=== PATIENT | female | born 1940 | race Caucasian/White ===

== ENCOUNTER → 2016-03-05 | Outpatient (CLI) | payer MEDICARE ==
[~2016-03-05] MED LIST: ASPIRIN81 M2 PO; BUMETANIDE2 MG PO; CEFDINIR300 MG PO; CELEXA20 MG PO; CHOLESTYRAMINE210 GM PO; DIOVAN HCT 11 TABLET PO; HYZAAR 100-11 TABLET PO; IBUPROFEN800 MG PO; LO-DOSE ASPIRIN81 M2 PO; LOPRESSOR100 M1 PO; LOPRESSOR50 MG PO; LORAZEPAM0.5 MG PO; NAPROXEN375 MG PO; NORCO 5/3251 TABLET PO; PRAVASTATIN SOD80 MG PO; TYLENOL EXTRA500 MG PO
== END | disposition home or self-care (01) ==
LOC: CDC 12:54
DX: R94.31 Abnormal electrocardiogram [ECG] [EKG] (principal); Q24.9 Congenital malformation of heart, unspecified; N20.0 Calculus of kidney
CPT/HCPCS: 93000

== ENCOUNTER 2016-03-12 18:22 | Inpatient (IN) | payer OTHER, MEDICARE ==
[~2016-03-12] VITALS: Ht 152.4 cm; Wt 89.9 kg
[~2016-03-12 18:22] MED LIST changes: -CEFDINIR300 MG PO; -HYZAAR 100-11 TABLET PO; -IBUPROFEN800 MG PO; -LO-DOSE ASPIRIN81 M2 PO; -LOPRESSOR50 MG PO; -PRAVASTATIN SOD80 MG PO; -TYLENOL EXTRA500 MG PO
[2016-03-12 19:24] LABS: HEMATOCRIT 29.8 % (36.0-46.0); MCH 28.8 PG (29.0-34.0); MCHC 34.6 G/DL (30.0-36.0); MCV 83.2 FL (83-99); MEAN PLAT.VOLUME 11.8 uM^3 (9.5-12.4); PLATELET COUNT 79 K/uL (156-360); RBC DIS.WIDTH-CV 15.2 % (11.8-14.6); RBC DIS.WIDTH-SD 45.1 % (39-53); RED BLOOD COUNT 3.58 M/uL (3.80-5.20); WHITE BLOOD COUNT 9.5 K/uL (4.1-10.2)
[2016-03-12 19:33] LABS: CHLORIDE 102 mEq/L (99-109); POTASSIUM 2.6 mEq/L (3.7-5.4); SODIUM 137 mEq/L (136-147)
[2016-03-12 19:35] LABS: GLUCOSE 113 mg/dL (70-99)
[2016-03-12 19:36] LABS: ANION GAP 12 MEQ/L (2-14)
[2016-03-12 19:38] LABS: GFR ESTIMATE (CALCULATED) 39 mL/min/
[2016-03-12 19:39] LABS: UREA NITROGEN (BUN) 34 mg/dL (9-23)
[2016-03-12 19:44] LABS: TROP-I INTERPRETATION POSITIVE
[2016-03-12 19:47] LABS: TROPONIN-I 5.31 ng/mL (0.0-0.30)
[2016-03-12] MEDS ORDERED: LO-DOSE ASPIRIN81 M2 PO (20:20)
[2016-03-12] MEDS ORDERED: IBUPROFEN800 MG PO (20:21)
[2016-03-12] MEDS ORDERED: HYZAAR 100-11 TABLET PO (20:22)
[2016-03-12] MEDS ORDERED: BUMETANIDE2 MG PO (20:22)
[2016-03-12] MEDS ORDERED: TYLENOL EXTRA500 MG PO (20:22)
[2016-03-12 23:33] VITALS: BP 86/67
[2016-03-12 23:41] VITALS: BP 86/67
[2016-03-13 00:15] VITALS: BP 90/55
[2016-03-13 00:40] VITALS: BP 95/44
[2016-03-13 01:00] VITALS: BP 68/50
[2016-03-13 01:11] LABS: METH RESISTANT S AUREUS PCR NEGATIVE (NEGATIVE)
[2016-03-13 01:15] LABS: PROBE CHECK PASS; SPECIMEN PROCESSING CONTROL PASS
[2016-03-13 02:00] VITALS: BP 76/53
[2016-03-13 03:00] VITALS: BP 75/53
[2016-03-13 03:01] LABS: INTER. NORMALIZED RATIO 1.2; PROTHROMBIN TIME 12.7 (9.2-11.2); PTT 34.8 (25-32)
[2016-03-13 03:02] LABS: CHLORIDE 108 mEq/L (99-109); MAGNESIUM 1.6 mg/dL (1.3-2.7); SODIUM 139 mEq/L (136-147)
[2016-03-13 03:04] LABS: GLUCOSE 111 mg/dL (70-99)
[2016-03-13 03:05] LABS: ANION GAP 11 MEQ/L (2-14)
[2016-03-13 03:06] LABS: POTASSIUM 2.2 mEq/L (3.7-5.4); TOTAL BILIRUBIN 0.4 mg/dL (0.0-1.0)
[2016-03-13 03:08] LABS: ALKALINE PHOSPHATASE 50 IU/L (3-129); GFR ESTIMATE (CALCULATED) 57 mL/min/
[2016-03-13 03:09] LABS: UREA NITROGEN (BUN) 36 mg/dL (9-23)
[2016-03-13 03:11] LABS: TROP-I INTERPRETATION POSITIVE
[2016-03-13 03:15] LABS: TROPONIN-I 7.93 ng/mL (0.0-0.30)
[2016-03-13 03:56] LABS: LDL CHOLESTEROL 46 mg/dL (Desirable<100); NON-HDL CHOLESTEROL 90 mg/dL (Desirable<160); TOTAL CHOLESTEROL 96 mg/dL (Desirable<200); TRIGLYCERIDES 221 MG/DL (Normal: <150)
[2016-03-13 03:59] LABS: HDL CHOLESTEROL 6 MG/DL (Desirable>=50)
[2016-03-13 06:56] LABS: HEMATOCRIT 29.1 % (36.0-46.0); MCH 28.5 PG (29.0-34.0); MCHC 34.7 G/DL (30.0-36.0); MCV 82.2 FL (83-99); MEAN PLAT.VOLUME 12.9 uM^3 (9.5-12.4); PLATELET COUNT 77 K/uL (156-360); RBC DIS.WIDTH-CV 15.2 % (11.8-14.6); RBC DIS.WIDTH-SD 44.3 % (39-53); RED BLOOD COUNT 3.54 M/uL (3.80-5.20); WHITE BLOOD COUNT 8.3 K/uL (4.1-10.2)
[2016-03-13 08:00] VITALS: BP 85/52
[2016-03-13 09:30] LABS: TROP-I INTERPRETATION POSITIVE
[2016-03-13 09:43] LABS: TROPONIN-I 7.21 ng/mL (0.0-0.30)
[2016-03-13 11:14] LABS: ANION GAP 12 MEQ/L (2-14); CHLORIDE 108 MEQ/L (99-109); GFR ESTIMATE (CALCULATED) > 59 mL/min/; GLUCOSE 112 mg/dL (70-99); SAMPLE HEMOLYSIS CHECK 0; SAMPLE ICTERIC CHECK 0; SAMPLE LIPEMIA CHECK 0; SODIUM 140 MEQ/L (136-147); UREA NITROGEN (BUN) 34 mg/dL (9-23)
[2016-03-13 11:16] LABS: POTASSIUM 2.2 MEQ/L (3.7-5.4)
[2016-03-13 12:33] LABS: ADD MIUA? YES; BILIRUBIN SMALL; BLOOD LARGE; COLOR YELLOW ((YELLOW)); GLUCOSE (STRIP) NEGATIVE; KETONES TRACE; LEUKOCYTES LARGE; NITRITE NEGATIVE; PROTEIN (STRIP) 100; SPECIFIC GRAVITY 1.027 (1.000-1.030); UROBILINOGEN 0.2 MG/DL (0.2-1.0)
[2016-03-13 13:21] LABS: Estimated Average Glucose 103 mg/dL (70-123); HEMOGLOBIN A1c (GLYCOHEMOGLOB) 5.2 % HGB (Below 5.7)
[2016-03-13 13:31] LABS: BACTERIA 3+; CASTS PRESENT /LPF; CRYSTALS PRESENT; EPITHELIAL CELLS 3+; MUCUS NONE SEEN; UCUL ADDED? YES; WHITE BLOOD CELLS 30-40 /HPF (0-5)
[2016-03-13 13:32] LABS: AMORPHOUS PHOSPHATE CRYSTALS 3+; FINE GRANULAR CASTS 0-5 /LPF; HYALINE CASTS RARE /LPF
[2016-03-13 18:38] LABS: ANION GAP 14 MEQ/L (2-14); CHLORIDE 106 MEQ/L (99-109); GFR ESTIMATE (CALCULATED) > 59 mL/min/; GLUCOSE 132 mg/dL (70-99); SAMPLE HEMOLYSIS CHECK 0; SAMPLE ICTERIC CHECK 0; SAMPLE LIPEMIA CHECK 0; SODIUM 139 MEQ/L (136-147); UREA NITROGEN (BUN) 31 mg/dL (9-23)
[2016-03-14 06:18] LABS: ANION GAP 10 MEQ/L (2-14); CHLORIDE 108 MEQ/L (99-109); GFR ESTIMATE (CALCULATED) > 59 mL/min/; GLUCOSE 103 mg/dL (70-99); MAGNESIUM 2.1 mg/dl (1.3-2.7); POTASSIUM 3.2 MEQ/L (3.7-5.4); SAMPLE HEMOLYSIS CHECK 0; SAMPLE ICTERIC CHECK 0; SAMPLE LIPEMIA CHECK 0; SODIUM 138 MEQ/L (136-147); UREA NITROGEN (BUN) 26 mg/dL (9-23)
[2016-03-14 07:11] LABS: HEMATOCRIT 28.1 % (36.0-46.0); MCH 28.7 PG (29.0-34.0); MCHC 34.2 G/DL (30.0-36.0); MCV 83.9 FL (83-99); RBC DIS.WIDTH-CV 15.6 % (11.8-14.6); RBC DIS.WIDTH-SD 48.4 % (39-53); RED BLOOD COUNT 3.35 M/uL (3.80-5.20); WHITE BLOOD COUNT 9.4 K/uL (4.1-10.2)
[2016-03-14 07:54] LABS: MEAN PLAT.VOLUME 13.5 uM^3 (9.5-12.4); PLATELET COUNT 94 K/uL (156-360)
[2016-03-14 09:00] VITALS: BP 127/53
[2016-03-14 12:00] VITALS: BP 137/59
[2016-03-14 16:00] VITALS: BP 144/57
[2016-03-14 19:43] VITALS: BP 159/76
[2016-03-14 23:21] VITALS: BP 124/60
[2016-03-15 03:34] VITALS: BP 160/74
[2016-03-15 05:54] LABS: HEMATOCRIT 30.1 % (36.0-46.0); MCH 28.5 PG (29.0-34.0); MCHC 33.2 G/DL (30.0-36.0); MCV 85.8 FL (83-99); MEAN PLAT.VOLUME 12.6 uM^3 (9.5-12.4); PLATELET COUNT 97 K/uL (156-360); RBC DIS.WIDTH-CV 16.2 % (11.8-14.6); RBC DIS.WIDTH-SD 50.5 % (39-53); RED BLOOD COUNT 3.51 M/uL (3.80-5.20); WHITE BLOOD COUNT 8.1 K/uL (4.1-10.2)
[2016-03-15 06:18] LABS: ANION GAP 8 MEQ/L (2-14); CHLORIDE 109 MEQ/L (99-109); GFR ESTIMATE (CALCULATED) > 59 mL/min/; GLUCOSE 85 mg/dL (70-99); POTASSIUM 3.4 MEQ/L (3.7-5.4); SAMPLE HEMOLYSIS CHECK 0; SAMPLE ICTERIC CHECK 0; SAMPLE LIPEMIA CHECK 0; SODIUM 140 MEQ/L (136-147); UREA NITROGEN (BUN) 15 mg/dL (9-23)
[2016-03-15 07:50] VITALS: BP 144/66
[2016-03-15 11:50] VITALS: BP 137/67
[2016-03-15 16:35] VITALS: BP 140/69
[2016-03-15 20:00] VITALS: BP 151/70
[2016-03-16] VITALS: BP 132/61
[2016-03-16 04:00] VITALS: BP 135/64
[2016-03-16 07:37] VITALS: BP 140/70
[2016-03-16 08:45] LABS: HEMATOCRIT 32.6 % (36.0-46.0); MCH 28.6 PG (29.0-34.0); MCHC 32.8 G/DL (30.0-36.0); MCV 87.2 FL (83-99); RED BLOOD COUNT 3.74 M/uL (3.80-5.20); WHITE BLOOD COUNT 9.2 K/uL (4.1-10.2)
[2016-03-16 08:54] LABS: PLATELET COUNT 127 K/uL (156-360)
[2016-03-16 09:37] LABS: ANION GAP 6 MEQ/L (2-14); CHLORIDE 109 MEQ/L (99-109); GFR ESTIMATE (CALCULATED) > 59 mL/min/; GLUCOSE 92 mg/dL (70-99); POTASSIUM 3.8 MEQ/L (3.7-5.4); SAMPLE HEMOLYSIS CHECK 0; SAMPLE ICTERIC CHECK 0; SAMPLE LIPEMIA CHECK 0; SODIUM 141 MEQ/L (136-147); UREA NITROGEN (BUN) 10 mg/dL (9-23)
[2016-03-16] MEDS ORDERED: PRAVASTATIN SOD80 MG PO (11:11)
[2016-03-16] MEDS ORDERED: LOPRESSOR50 MG PO (11:12)
[2016-03-16] MEDS ORDERED: CEFDINIR300 MG PO (11:13)
[2016-03-16 12:10] VITALS: BP 161/81
== END 2016-03-16 15:00 | disposition home or self-care (01) | DRG 871 ==
LOC: EME 18:22 → EDOF 22:02 → 4WEST 22:02 → 2EAST 03-14 19:09
PROVIDERS: Emergency Medicine; Internal Medicine; Internal Medicine Cardiovascular Disease; Internal Medicine Pulmonary Disease
PROC: 02HV33Z Insertion of Infusion Device into Superior Vena Cava, Percutaneous Approach (ICD-10-PCS; principal; 2016-03-13)
DX: A41.59 Other Gram-negative sepsis (principal); I21.4 Non-ST elevation (NSTEMI) myocardial infarction; R65.21 Severe sepsis with septic shock; N17.9 Acute kidney failure, unspecified; N39.0 Urinary tract infection, site not specified; N20.1 Calculus of ureter; R19.7 Diarrhea, unspecified; I48.0 Paroxysmal atrial fibrillation; B96.4 Proteus (mirabilis) (morganii) as the cause of diseases classified elsewhere; I10 Essential (primary) hypertension; G89.29 Other chronic pain; F32.9 Major depressive disorder, single episode, unspecified; F41.9 Anxiety disorder, unspecified; E87.6 Hypokalemia; E86.0 Dehydration; E78.5 Hyperlipidemia, unspecified; D69.6 Thrombocytopenia, unspecified; E66.01 Morbid (severe) obesity due to excess calories; I95.9 Hypotension, unspecified; R63.4 Abnormal weight loss; G62.9 Polyneuropathy, unspecified; R26.9 Unspecified abnormalities of gait and mobility; Z79.82 Long term (current) use of aspirin; Z88.8 Allergy status to other drugs, medicaments and biological substances; Z87.891 Personal history of nicotine dependence
CPT/HCPCS: 36620; 71010; 74020; 76770; 80048; 80048 91; 80053; 80061; 81003; 83036; 83605; 83735; 84100; 84484; 85027; 85610; 85730; 86850; 86900; 86901; 87040; 87077; 87086; 87186; 87641; 87801; 93005; 93306; 94799; 99281; 99285; J1650; J2405; J2543; J3370; J3475; J3480; J7030; J7050; J7120

== ENCOUNTER 2016-04-17 06:13 | Inpatient (IN) | payer OTHER, MEDICARE ==
[~2016-04-17] VITALS: Ht 152.4 cm; Wt 89.0 kg
[~2016-04-17 06:13] MED LIST changes: +CEFDINIR300 MG PO; +HYZAAR 100-11 TABLET PO; +IBUPROFEN800 MG PO; +LO-DOSE ASPIRIN81 M2 PO; +LOPRESSOR50 MG PO; +PRAVASTATIN SOD80 MG PO; +TYLENOL EXTRA500 MG PO
[2016-04-17 06:57] VITALS: BP 163/58
[2016-04-17 12:41] LABS: TROP-I INTERPRETATION NEGATIVE; TROPONIN-I < 0.01 ng/mL (0.0-0.30)
[2016-04-17 16:10] VITALS: BP 106/57
[2016-04-17 17:18] LABS: TROP-I INTERPRETATION POSITIVE
[2016-04-17 17:23] LABS: TROPONIN-I 0.95 ng/mL (0.0-0.30)
[2016-04-17 19:07] LABS: HEMATOCRIT 31.3 % (36.0-46.0); MCH 27.3 PG (29.0-34.0); MCHC 31.6 G/DL (30.0-36.0); MCV 86.5 FL (83-99); MEAN PLAT.VOLUME 12.3 uM^3 (9.5-12.4); RBC DIS.WIDTH-CV 16.8 % (11.8-14.6); RBC DIS.WIDTH-SD 53.1 % (39-53); RED BLOOD COUNT 3.62 M/uL (3.80-5.20)
[2016-04-17 19:12] LABS: INTER. NORMALIZED RATIO 1.1; PROTHROMBIN TIME 11.7 (9.2-11.2); PTT 28.7 (25-32)
[2016-04-17 19:22] LABS: PLATELET COUNT 106 K/uL (156-360); WHITE BLOOD COUNT 10.6 K/uL (4.1-10.2)
[2016-04-17 19:44] VITALS: BP 110/53
[2016-04-17 22:00] VITALS: BP 93/48
[2016-04-17 23:53] LABS: TROP-I INTERPRETATION POSITIVE
[2016-04-17 23:57] LABS: TROPONIN-I 2.12 ng/mL (0.0-0.30)
[2016-04-18] VITALS: BP 95/52
[2016-04-18 02:52] LABS: INTER. NORMALIZED RATIO 1.3; PROTHROMBIN TIME 13.4 (9.2-11.2)
[2016-04-18 02:53] LABS: PTT 50.8 (25-32)
[2016-04-18 04:00] VITALS: BP 106/50
[2016-04-18 06:52] LABS: HEMATOCRIT 29.2 % (36.0-46.0); MCH 27.4 PG (29.0-34.0); MCHC 31.8 G/DL (30.0-36.0); MCV 86.1 FL (83-99); MEAN PLAT.VOLUME 12.2 uM^3 (9.5-12.4); PLATELET COUNT 132 K/uL (156-360); RBC DIS.WIDTH-CV 17.2 % (11.8-14.6); RBC DIS.WIDTH-SD 53.6 % (39-53); RED BLOOD COUNT 3.39 M/uL (3.80-5.20)
[2016-04-18 06:59] LABS: WHITE BLOOD COUNT 18.3 K/uL (4.1-10.2)
[2016-04-18 07:04] LABS: ANION GAP 9 MEQ/L (2-14); CHLORIDE 102 MEQ/L (99-109); CREATINE KINASE 139 IU/L (1-294); GFR ESTIMATE (CALCULATED) > 59 mL/min/; GLUCOSE 128 mg/dL (70-99); POTASSIUM 3.3 MEQ/L (3.7-5.4); SAMPLE HEMOLYSIS CHECK 0; SAMPLE ICTERIC CHECK 0; SAMPLE LIPEMIA CHECK 0; SODIUM 137 MEQ/L (136-147); TOTAL CK 139 IU/L (1-294); UREA NITROGEN (BUN) 22 mg/dL (9-23)
[2016-04-18 07:07] LABS: TROP-I INTERPRETATION POSITIVE
[2016-04-18 07:10] LABS: TROPONIN-I 1.75 ng/mL (0.0-0.30)
[2016-04-18 07:45] VITALS: BP 107/53
[2016-04-18 08:19] LABS: CK-MB 5.2 ng/mL (0.0-4.9)
[2016-04-18 13:39] VITALS: BP 97/50
[2016-04-18 13:41] VITALS: BP 97/50
[2016-04-18 20:00] VITALS: BP 128/69
[2016-04-18 23:46] LABS: ADD MIUA? YES; BILIRUBIN NEGATIVE; BLOOD LARGE; COLOR YELLOW ((YELLOW)); GLUCOSE (STRIP) NEGATIVE; KETONES NEGATIVE; LEUKOCYTES SMALL; NITRITE NEGATIVE; PROTEIN (STRIP) NEGATIVE; SPECIFIC GRAVITY 1.014 (1.000-1.030); UROBILINOGEN 0.2 MG/DL (0.2-1.0)
[2016-04-18 23:54] LABS: BACTERIA NONE SEEN /HPF; EPITHELIAL CELLS RARE /HPF; MUCUS NONE SEEN /LPF; RED BLOOD CELLS TNTC /HPF (0-5); UCUL ADDED? NO; WHITE BLOOD CELLS 20-30 /HPF (0-5)
[2016-04-19] VITALS (7 sets, daily range): BP systolic 109–144; BP diastolic 49–72
[2016-04-19 09:35] LABS: HEMATOCRIT 26.3 % (36.0-46.0); MCH 29.5 PG (29.0-34.0); MCHC 33.8 G/DL (30.0-36.0); MCV 87.1 FL (83-99); MEAN PLAT.VOLUME 11.8 uM^3 (9.5-12.4); PLATELET COUNT 100 K/uL (156-360); RBC DIS.WIDTH-CV 17.1 % (11.8-14.6); RBC DIS.WIDTH-SD 54.7 % (39-53); RED BLOOD COUNT 3.02 M/uL (3.80-5.20)
[2016-04-19 09:39] LABS: WHITE BLOOD COUNT 11.6 K/uL (4.1-10.2)
[2016-04-19 09:49] LABS: ANION GAP 7 MEQ/L (2-14); CHLORIDE 107 MEQ/L (99-109); GFR ESTIMATE (CALCULATED) > 59 mL/min/; GLUCOSE 103 mg/dL (70-99); POTASSIUM 3.5 MEQ/L (3.7-5.4); SAMPLE HEMOLYSIS CHECK 0; SAMPLE ICTERIC CHECK 0; SAMPLE LIPEMIA CHECK 0; SODIUM 140 MEQ/L (136-147); UREA NITROGEN (BUN) 13 mg/dL (9-23)
[2016-04-20 05:00] VITALS: BP 139/68
[2016-04-20 07:17] VITALS: BP 132/60
[2016-04-20 11:39] VITALS: BP 115/58
[2016-04-20 15:54] VITALS: BP 143/65
[2016-04-20 20:06] VITALS: BP 147/64
[2016-04-20 23:55] VITALS: BP 136/64
[2016-04-21 03:08] VITALS: BP 179/79
[2016-04-21 06:41] LABS: HEMATOCRIT 27.2 % (36.0-46.0); MCHC 32.4 G/DL (30.0-36.0); MCV 86.6 FL (83-99); MEAN PLAT.VOLUME 11.5 uM^3 (9.5-12.4); PLATELET COUNT 125 K/uL (156-360); RBC DIS.WIDTH-CV 16.4 % (11.8-14.6); RBC DIS.WIDTH-SD 52.3 % (39-53); RED BLOOD COUNT 3.14 M/uL (3.80-5.20)
[2016-04-21 06:42] LABS: WHITE BLOOD COUNT 5.8 K/uL (4.1-10.2)
[2016-04-21 08:00] VITALS: BP 162/88
[2016-04-21] MEDS ORDERED: ASPIRIN EC325 MG PO (12:10)
[2016-04-21] MEDS ORDERED: BACTRIM,SEPT1 TABLET PO (12:10)
[2016-04-21] MEDS ORDERED: PLAVIX75 MG PO (13:04)
[2016-04-21] MEDS ORDERED: NITROGLYCERIN0.4 MG SL (13:05)
== END 2016-04-21 15:19 | disposition home or self-care (01) | DRG 693 ==
LOC: SDC → 4EAST 13:00 → 2SOUTH 13:00 → SDC 14:57 → 2EAST 15:45 → 4EAST 21:36
PROVIDERS: Internal Medicine Cardiovascular Disease; Nurse Practitioner Adult Health; Physician Assistant; Urology
PROC: BT14YZZ Fluoroscopy of Kidneys, Ureters and Bladder using Other Contrast (ICD-10-PCS; principal; 2016-04-17)
PROC: 0TF68ZZ Fragmentation in Right Ureter, Via Natural or Artificial Opening Endoscopic (ICD-10-PCS; principal; 2016-04-17)
PROC: 0T768DZ Dilation of Right Ureter with Intraluminal Device, Via Natural or Artificial Opening Endoscopic (ICD-10-PCS; principal; 2016-04-17)
PROC: 0TF38ZZ Fragmentation in Right Kidney Pelvis, Via Natural or Artificial Opening Endoscopic (ICD-10-PCS; principal; 2016-04-17)
PROC: B2151ZZ Fluoroscopy of Left Heart using Low Osmolar Contrast (ICD-10-PCS; 2016-04-18)
PROC: B2101ZZ Fluoroscopy of Single Coronary Artery using Low Osmolar Contrast (ICD-10-PCS; 2016-04-18)
PROC: 4A023N7 Measurement of Cardiac Sampling and Pressure, Left Heart, Percutaneous Approach (ICD-10-PCS; 2016-04-18)
PROC: B2111ZZ Fluoroscopy of Multiple Coronary Arteries using Low Osmolar Contrast (ICD-10-PCS; 2016-04-18)
DX: N20.2 Calculus of kidney with calculus of ureter (principal); I21.3 ST elevation (STEMI) myocardial infarction of unspecified site; A41.9 Sepsis, unspecified organism; N39.0 Urinary tract infection, site not specified; I48.0 Paroxysmal atrial fibrillation; E78.5 Hyperlipidemia, unspecified; I25.10 Atherosclerotic heart disease of native coronary artery without angina pectoris; R07.9 Chest pain, unspecified; F41.9 Anxiety disorder, unspecified; Z88.8 Allergy status to other drugs, medicaments and biological substances; I10 Essential (primary) hypertension; Z91.041 Radiographic dye allergy status; Z86.19 Personal history of other infectious and parasitic diseases; I34.0 Nonrheumatic mitral (valve) insufficiency; I95.9 Hypotension, unspecified
CPT/HCPCS: 71010; 74000; 80048; 81003; 82272; 82550; 82553; 84484; 85027; 85347; 85610; 85730; 87040; 87086; 93005; C1769; C1887; C1894; G0378; J0696; J1170; J1580; J1644; J2250; J2405; J2765; J3010; J7030; J7050; J7120

== ENCOUNTER 2016-05-19 10:21 | Emergency (ER) | payer OTHER, MEDICARE ==
[~2016-05-19] VITALS: Ht 152.4 cm; Wt 98.1 kg
[~2016-05-19 10:21] MED LIST changes: +ASPIRIN EC325 MG PO; +BACTRIM,SEPT1 TABLET PO; +NITROGLYCERIN0.4 MG SL; +PLAVIX75 MG PO
[2016-05-19 11:34] LABS: EOSINOPHIL (%) 1.6 % (0-5); EOSINOPHIL COUNT 0.1 K/uL (0-0.3); HEMATOCRIT 32.2 % (36.0-46.0); IMMATURE GRANULOCYTE (%) 0.4 % (0.0-0.7); INSTRUMENT ABS NEUTROPHIL CT 5.7 K/uL; LYMPHOCYTE COUNT 1.2 K/uL (1.0-2.8); MCH 27.1 PG (29.0-34.0); MCHC 31.4 G/DL (30.0-36.0); MCV 86.3 FL (83-99); MEAN PLAT.VOLUME 11.8 uM^3 (9.5-12.4); MONOCYTE (%) 13.1 % (3-12); MONOCYTE COUNT 1.1 K/uL (0-0.8); NEUTROPHIL (%) 70.2 % (45-76); NEUTROPHIL COUNT 5.7 K/uL (1.8-6.4); PLATELET COUNT 142 K/uL (156-360); RBC DIS.WIDTH-CV 16.4 % (11.8-14.6); RBC DIS.WIDTH-SD 51.2 % (39-53); RED BLOOD COUNT 3.73 M/uL (3.80-5.20)
[2016-05-19 11:35] LABS: WHITE BLOOD COUNT 8.2 K/uL (4.1-10.2)
[2016-05-19 11:44] LABS: CHLORIDE 111 mEq/L (99-109); POTASSIUM 3.7 mEq/L (3.7-5.4); SODIUM 142 mEq/L (136-147)
[2016-05-19 11:46] LABS: GLUCOSE 108 mg/dL (70-99)
[2016-05-19 11:47] LABS: ANION GAP 9 MEQ/L (2-14)
[2016-05-19 11:48] LABS: TOTAL BILIRUBIN 0.3 mg/dL (0.0-1.0)
[2016-05-19 11:49] LABS: ALKALINE PHOSPHATASE 64 IU/L (3-129)
[2016-05-19 11:50] LABS: GFR ESTIMATE (CALCULATED) > 59 mL/min/
[2016-05-19 11:51] LABS: UREA NITROGEN (BUN) 15 mg/dL (9-23)
[2016-05-19 11:55] LABS: TROP-I INTERPRETATION NEGATIVE; TROPONIN-I < 0.01 ng/mL (0.0-0.30)
[2016-05-19 12:03] LABS: ERTH.SED.RATE 59 MM/HR (0-30)
[2016-05-19] MEDS ORDERED: BACLOFEN10 MG PO (14:34)
[2016-05-19] MEDS ORDERED: COLACE100 MG PO (14:34)
[2016-05-19] MEDS ORDERED: LORTAB 5-325 M1 EACH PO (14:34)
[2016-05-19] MEDS ORDERED: MEDROL DOSEPAK4 MG PO (14:34)
[2016-05-19 14:57] VITALS: BP 143/87
== END 2016-05-19 14:52 | disposition home or self-care (01) ==
LOC: EME 10:21
PROVIDERS: Emergency Medicine
DX: M48.02 Spinal stenosis, cervical region (principal); M54.2 Cervicalgia; R51 Headache; E78.5 Hyperlipidemia, unspecified; I10 Essential (primary) hypertension; I25.2 Old myocardial infarction; Z87.442 Personal history of urinary calculi; Z87.891 Personal history of nicotine dependence
CPT/HCPCS: 70544; 70549; 70551; 72141; 80053; 84484; 85025; 85651; 93005; 99281; 99285; J1100; J2270; J2405

== ENCOUNTER 2017-06-06 14:15 | Emergency (ER) | payer OTHER, MEDICARE ==
[~2017-06-06] VITALS: Ht 149.9 cm; Wt 88.4 kg
[~2017-06-06 14:15] MED LIST changes: +BACLOFEN10 MG PO; +COLACE100 MG PO; +LORTAB 5-325 M1 EACH PO; +MEDROL DOSEPAK4 MG PO
[2017-06-06 17:38] LABS: BILIRUBIN NEGATIVE; BLOOD LARGE; COLOR YELLOW ((YELLOW)); GLUCOSE (STRIP) NEGATIVE; KETONES NEGATIVE; LEUKOCYTES MODERATE; NITRITE NEGATIVE; PROTEIN (STRIP) 30; SPECIFIC GRAVITY 1.018 (1.000-1.030); UROBILINOGEN 0.2 MG/DL (0.2-1.0)
[2017-06-06 17:41] LABS: APPEARANCE CLOUDY ((CLEAR))
[2017-06-06 17:51] LABS: EPITHELIAL CELLS 1+ /HPF; MUCUS TRACE /LPF
[2017-06-06 17:52] LABS: BACTERIA 2+ /HPF; RED BLOOD CELLS TNTC /HPF (0-5); UCUL ADDED? YES; WHITE BLOOD CELLS 30-40 /HPF (0-5)
[2017-06-06] MEDS ORDERED: KEFLEX500 MG PO (18:04)
[2017-06-06 19:12] LABS: HEMOGLOBIN 12.9 G/DL (11.9-15.5); MCH 29.7 PG (29.0-34.0); MCHC 33.1 G/DL (30.0-36.0); MCV 89.7 FL (83-99); PLATELET COUNT 125 K/uL (156-360); RBC DIS.WIDTH-CV 14.1 % (11.8-14.6); RED BLOOD COUNT 4.35 M/uL (3.80-5.20); WHITE BLOOD COUNT 6.6 K/uL (4.1-10.2)
[2017-06-06 19:21] LABS: ALBUMIN 3.9 g/dL (3.2-4.8); CHLORIDE 108 mEq/L (99-109); POTASSIUM 4.6 mEq/L (3.7-5.4); SODIUM 141 mEq/L (136-147)
[2017-06-06 19:23] LABS: GLUCOSE 86 mg/dL (70-99); TOTAL PROTEIN 6.9 g/dL (6.4-8.3)
[2017-06-06 19:25] LABS: TOTAL BILIRUBIN 0.4 mg/dL (0.0-1.0)
[2017-06-06 19:27] LABS: ALKALINE PHOSPHATASE 70 IU/L (3-129); CREATININE 0.6 mg/dL (0.6-1.3); GFR ESTIMATE (CALCULATED) > 59 mL/min/
[2017-06-06 19:28] LABS: UREA NITROGEN (BUN) 16 mg/dL (9-23)
[2017-06-06 19:29] LABS: AST (GOT) 13 IU/L (2-34)
[2017-06-06 19:30] LABS: ALT (GPT) 10 IU/L (3-49); LIPASE 20 U/L (1.0-51.0)
[2017-06-06 20:30] VITALS: BP 149/72
== END 2017-06-06 20:31 | disposition home or self-care (01) ==
LOC: EME 14:15
PROVIDERS: Physician Assistant
DX: N39.0 Urinary tract infection, site not specified (principal); N20.0 Calculus of kidney; E78.5 Hyperlipidemia, unspecified; F32.9 Major depressive disorder, single episode, unspecified; F41.9 Anxiety disorder, unspecified; I10 Essential (primary) hypertension; I25.2 Old myocardial infarction; Z87.442 Personal history of urinary calculi; Z87.891 Personal history of nicotine dependence; Z96.652 Presence of left artificial knee joint; Z88.8 Allergy status to other drugs, medicaments and biological substances
CPT/HCPCS: 72100; 74176; 80053; 81003; 83690; 85027; 87077; 87086; 87186; 93971; 99281; 99285